=== PATIENT | female | born 1995 | race Caucasian/White ===

== ENCOUNTER 2017-09-01 04:47 | Emergency (ER) | payer SELFPAY ==
[~2017-09-01] VITALS: Ht 160 cm; Wt 100.0 kg
[2017-09-01 05:44] VITALS: BP 123/88
== END 2017-09-01 06:36 | disposition home or self-care (01) ==
LOC: EMS 04:48
DX: S80.211A Abrasion, right knee, initial encounter (principal); J45.909 Unspecified asthma, uncomplicated; F17.210 Nicotine dependence, cigarettes, uncomplicated; Z88.0 Allergy status to penicillin; V89.9XXA Person injured in unspecified vehicle accident, initial encounter; Y93.89 Activity, other specified; Y92.89 Other specified places as the place of occurrence of the external cause; Y99.8 Other external cause status
CPT/HCPCS: 81025; 99284

== ENCOUNTER 2021-10-26 03:02 | Emergency (ER) | payer BC ==
[~2021-10-26] VITALS: Ht 160 cm; Wt 100.0 kg
[~2021-10-26 03:02] MED LIST: BUPR75 PO; CITA10TA99 PO
[2021-10-26] MEDS ORDERED: HYDROmorphone 2 MG/ML VIAL IVP ONE (04:45)
[2021-10-26] MEDS ORDERED: KETOROLAC TROMETHAMINE 30 MG/ML VIAL IVP ONE (04:45)
[2021-10-26] MEDS ORDERED: ONDANSETRON HCL 4 MG/2 ML VIAL IVP ONE (04:45)
[2021-10-26 05:19] LABS: COVID AG,FIA SOURCE NASAL SWAB
[2021-10-26] MEDS ORDERED: SODIUM CHLORIDE 0.9% 1,000 ML IV ONE (06:00)
[2021-10-26] MEDS ORDERED: IBUP-2070 PO (06:53)
[2021-10-26 07:09] VITALS: BP 108/73
== END 2021-10-26 07:30 | disposition home or self-care (01) ==
LOC: EMS 03:03
DX: S42.401A Unspecified fracture of lower end of right humerus, initial encounter for closed fracture (principal); S90.511A Abrasion, right ankle, initial encounter; F41.9 Anxiety disorder, unspecified; F32.9 Major depressive disorder, single episode, unspecified; J45.909 Unspecified asthma, uncomplicated; F17.210 Nicotine dependence, cigarettes, uncomplicated; Z20.822 Contact with and (suspected) exposure to COVID-19; Z88.0 Allergy status to penicillin; Z79.899 Other long term (current) drug therapy; W05.1XXA Fall from non-moving nonmotorized scooter, initial encounter; Y93.89 Activity, other specified; Y92.89 Other specified places as the place of occurrence of the external cause; Y99.8 Other external cause status
CPT/HCPCS: 29105; 73080; 73090; 81025; 87426; 96361; 96374; 96375; 99285; J1170; J1885; J2405